=== PATIENT | male | born 1970 | race Caucasian/White ===

== ENCOUNTER 2017-06-28 09:32 | Day surgery (SDC) | payer BC ==
[~2017-06-28 09:32] MED LIST: Lactated Ringers 1,000 ML IV SCH
[2017-06-28] MEDS ORDERED: Lidocaine 2% 5 ML SDV ONE (09:43)
[2017-06-28] MEDS ORDERED: Propofol 200 MG/20 ML SDV ONE ×3 (09:43→11:47)
--- NOTE | 2017-06-28 10:15 | PCM.PREANE ---
Preanesthetic Assessment - Anesthesia/Transfusion/Family Hx Anesthesia History: Prior Anesthesia Without Reaction Family History of Anesthesia Reaction: No Transfusion History: No Prior Transfusion(s) Intubation History: Unknown - Review of Systems General: No Symptoms Pulmonary: No Symptoms Cardiovascular: No Symptoms Gastrointestinal: Constipation, Hematochezia Neurological: No Symptoms Other: Reports: None - Physical Assessment Height: 1.7 m Weight: 104.326 kg ASA Class: 3 Mental Status: Alert & Oriented x3 Airway Class: Mallampati = 2 Dentition: Reports: Normal Dentition Thyro-Mental Finger Breadths: 3 Mouth Opening Finger Breadths: 3 ROM/Head Extension: Full Lungs: Clear to Auscultation, Normal Respiratory Effort Cardiovascular: Regular Rate, Regular Rhythm - Allergies Allergies/Adverse Reactions: Allergies Allergy/AdvReac Type Severity Reaction Status Date / Time No Known Allergies Allergy Verified 06/27/17 08:22 - Blood Blood Available: No - Anesthesia Plan Pre-Op Medication Ordered: None - Acknowledgements Anesthesia Type Planned: MAC Pt an Appropriate Candidate for the Planned Anesthesia: Yes Alternatives and Risks of Anesthesia Discussed w Pt/Guardian: Yes Pt/Guardian Understands and Agrees with Anesthesia Plan: Yes PreAnesthesia Questionnaire HEENT History: Reports: Other (See Below) Other HEENT History: wears glasses Respiratory History: Reports: Asthma Gastrointestinal History: Reports: GERD Musculoskeletal History: Reports: Back Pain, Chronic, Fracture Other Musculoskeletal History: hx fx leg and fx rt foot, 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, tremor in both arms Neurological History: Reports: None Psychiatric History: Reports: None Endocrine/Metabolic History: Reports: Obesity/BMI 30+ (BMI 36) Hematologic History: Reports: None Immunologic History: Reports: None Oncologic (Cancer) History: Reports: None Dermatologic History: Reports: None - Past Surgical History Head Surgeries/Procedures: Reports: None Musculoskeletal Surgical History: Reports: Other (See Below) Other Musculoskeletal Surgeries/Procedures:: multiple surgeries to left foot and ankle - SUBSTANCE USE Smoking Status *Q: Never Smoker Second Hand Smoke Exposure: Yes Recreational Drug Use History: No - HOME MEDS Home Medications: Home Meds Albuterol [Proair HFA] 2 puff INH ASDIRECTED PRN 06/27/17 [History] Omeprazole 20 mg PO DAILY 06/27/17 [History] - CURRENT (IN HOUSE) MEDS Current Meds: Current Medications Lactated Ringer's (Ringers, Lactated) 1,000 mls @ 125 mls/hr IV ASDIRECTED RIVER Discontinued Medications Lidocaine (Xylocaine-Mpf 2%) Confirm Administered Dose 5 ml .ROUTE .STK-MED ONE Stop: 06/28/17 09:44 Propofol (Diprivan 20 Ml) Confirm Administered Dose 400 mg .ROUTE .STK-MED ONE Stop: 06/28/17 09:44
[2017-06-28] MEDS ORDERED: Ondansetron 4 MG Tab.DIS PO PRN (12:05)
--- NOTE | 2017-06-28 12:10 | PCM.OPNOTE ---
- General Post-Op/Procedure Note Date of Surgery/Procedure: 06/28/17 Operative Procedure(s): Esophagogastroduodenoscopy with biopsy. Colonoscopy. Pre Op Diagnosis: Progressive gastroesophageal reflux disease. Change in bowel habits. Intermittent rectal bleeding. Post-Op Diagnosis: Duodenitis, gastritis, hiatal hernia with esophagitis. No evidence of colonic neoplasia. Anesthesia Technique: MAC (ASA III) Primary Surgeon: Fabio Faye Tacking Machine Operator: Kaleb Dowell Condition: Good Free Text/Narrative:: Dictation [id number] CPT CODE [id number]
[2017-06-28 12:19] VITALS: BP 114/70
--- NOTE | 2017-06-28 12:30 | OR ---
SURGEON: Fabio Faye M.D. DATE OF PROCEDURE: 06/28/2017 OPERATION PERFORMED: Esophagogastroduodenoscopy with biopsy. DATAPOWER CONSULTANT: Dr. Dowell, PGY3. ANESTHESIA: MAC. ASA CLASSIFICATION: III. PREOPERATIVE DIAGNOSIS: Progressive gastroesophageal reflux disease with worsening heartburn. POSTOPERATIVE DIAGNOSES: 1. Gastritis. 2. Hiatal hernia. 3. Esophagitis. DESCRIPTION OF PROCEDURE: The patient was taken to the endoscopy room, positioned on the endoscopy table in the left lateral decubitus position. Time-out was called for appropriate identification of the patient and procedure. Monitored anesthesia care was provided. A bite block was placed between the patient's teeth. The gastroscope was inserted through the bite block into the mouth and advanced without difficulty through the oropharynx into the esophagus, and subsequently through the esophagus and stomach into the duodenum where examination was carried out in a retrograde fashion. Duodenum did show some mild inflammatory changes and duodenal biopsies were obtained. No acute ulcerations were noted. The gastroscope was then withdrawn to the stomach, which also shows a mild gastritis. Antral biopsies were obtained. No acute ulcerations or tumors were noted. The gastroscope was retroflexed to visualize the proximal stomach. The patient does have a large hiatal hernia. The scope was then straightened and slowly withdrawn carefully visualizing the greater and lesser curvatures. Stomach was aspirated. The GE junction is well defined and shows mild-to- moderate acute inflammatory changes. Biopsies of the distal esophagus were obtained. The esophagus itself demonstrates good contractility. No mid or proximal lesions were identified. The vocal cords were briefly visualized as the scope was withdrawn and noted to move symmetrically. The gastroscope was then removed with the patient having tolerated this portion of the procedure well. DENNISE / KELVIN /[id number]
--- NOTE | 2017-06-28 12:33 | OR ---
SURGEON: Fabio Faye M.D. DATE OF PROCEDURE: 06/28/2017 OPERATION PERFORMED: Colonoscopy OPTOMETRIC TECHNOLOGIST: Dr. Dowell, PGY3. ANESTHESIA: MAC. ASA CLASSIFICATION: III. PREOPERATIVE DIAGNOSIS: Change in bowel habits with intermittent rectal bleeding. POSTOPERATIVE DIAGNOSIS: No evidence of colonic neoplasia. DESCRIPTION OF PROCEDURE: With the patient in the left lateral decubitus position, the colonoscope was inserted into the rectum and advanced without difficulty through the entire length of the colon to the cecum. Despite multiple maneuvers, we were never able to retroflex the colonoscope in the cecum. The colonoscope was slowly withdrawn. The cecum, ascending colon, hepatic flexure, transverse colon, splenic flexure, descending colon, sigmoid colon, and rectum were very well visualized. No tumors, polyps, diverticula, or angiodysplastic changes were noted anywhere in the lower gastrointestinal tract. Once the colonoscope was withdrawn to the rectum, it was retroflexed to visualize the anal orifice from above. No tumors or polyps were seen, and there were no acute hemorrhoidal changes. The colonoscope was then straightened, the rectum aspirated, and the colonoscope removed. The patient tolerated the procedure well and was taken to recovery room in stable condition. DENNISE / KELVIN /[id number]
--- NOTE | 2017-06-28 13:32 | PCM.POSTAN ---
POST ANESTHESIA ASSESSMENT - MENTAL STATUS Mental Status: Alert, Oriented - RESPIRATORY Respiratory Status: Respiratory Rate WNL, Airway Patent, O2 Saturation Stable - CARDIOVASCULAR CV Status: Pulse Rate WNL, Blood Pressure Stable - GASTROINTESTINAL GI Status: No Symptoms - POST OP HYDRATION Hydration Status: Adequate & Stable
--- NOTE | 2017-06-28 13:33 | PCM48HPAN ---
Post Anesthesia Note - EVALUATION WITHIN 48HRS OF ANESTHETIC Vital Signs in Normal Range: Yes Patient Participated in Evaluation: Yes Respiratory Function Stable: Yes Airway Patent: Yes Cardiovascular Function Stable: Yes Hydration Status Stable: Yes Pain Control Satisfactory: Yes Nausea and Vomiting Control Satisfactory: Yes Mental Status Recovered: Yes Resp Rate: 16
== END 2017-06-28 13:15 | disposition home or self-care (01) ==
LOC: MW.SDS 09:32
PROVIDERS: ATTEND Surgery
DX: K29.50 Unspecified chronic gastritis without bleeding (principal); K29.80 Duodenitis without bleeding; K20.9 Esophagitis, unspecified; K22.70 Barrett's esophagus without dysplasia; K44.9 Diaphragmatic hernia without obstruction or gangrene; J45.909 Unspecified asthma, uncomplicated; E66.9 Obesity, unspecified; Z91.09 Other allergy status, other than to drugs and biological substances; Z79.899 Other long term (current) drug therapy; Z68.36 Body mass index [BMI] 36.0-36.9, adult
CPT/HCPCS: 43239; 45378; J7120; 00813; 88305; 88312; J2704

== ENCOUNTER 2017-10-07 09:18 | Emergency (ER) | payer BC ==
[2017-10-07] MEDS ORDERED: Aspirin 325 MG Tab PO ONE (09:28)
[2017-10-07] MEDS ORDERED: Sodium Chloride 0.9% 10 ML Syringe FLUSH PRN (09:28)
[2017-10-07] MEDS ORDERED: Sodium Chloride 0.9% 2.5 ML Syringe FLUSH PRN (09:28)
[2017-10-07] MEDS ORDERED: Nitroglycerin 0.4 MG Tab.SL SL PRN (09:30)
[2017-10-07] MEDS ORDERED: Albuterol/Ipratropium 3.0-0.5 MG/3 ML Neb Soln NEB ONE (09:35)
--- NOTE | 2017-10-07 09:35 | EDM.PDOC ---
ED HPI GENERAL MEDICAL PROBLEM - General Chief Complaint: Chest Pain Stated Complaint: CHEST PAIN Time Seen by Provider: 10/07/17 09:32 Source of Information: Reports: Patient History Limitations: Reports: No Limitations - History of Present Illness INITIAL COMMENTS - FREE TEXT/NARRATIVE: HISTORY AND PHYSICAL: History of present illness: 47-year-old male presenting emerged chief complaint of chest pain 2 days Patient states that he began having some chest pain after returning from his vacation. States he has been significant for the past 2 days. It is constant and heavy/tight in character. No alleviating factors and has not taken any medication for this. He has no significant cardiac history and denies any LA, hypertension, or other cardiac disease processes. He does have a history of asthma and has felt short of breath with this. He denies any diaphoresis or nausea and vomiting associated with the chest pain. He also denies any radiation of pain. Currently pain is substernal and more tightness worse with deep breaths. Patient states the only reason why he came in secondary to his family requesting. Patient sees a primary care provider, Dr. Garcia, but has never seen a continuous mining operator. Patient currently denies palpitations, syncopal episodes, focal neurologic deficits. Her pain is 6 out of 10. [id number]- Initial EKG normal sinus rhythm with no significant ST changes. Chest pain reproducible on exam. Significant wheezing bilaterally throughout, as well as poor airway movement. Subsequent EKG showed aydee 58 with occasional PAC. Review of systems: As per history of present illness and below otherwise all systems reviewed and negative. Past medical history: As per history of present illness and as reviewed below otherwise noncontributory. Surgical history: As per history of present illness and as reviewed below otherwise noncontributory. Social history: No reported history of drug or alcohol abuse. Family history: As per history of present illness and as reviewed below otherwise noncontributory. Physical exam: HEENT: Atraumatic, normocephalic, pupils reactive, negative for conjunctival pallor or scleral icterus, mucous membranes moist, throat clear, neck supple, nontender, trachea midline. Lungs: Generalized bilateral wheezes, poor air movement, breath sounds equal bilaterally, chest pain reproducible deep palpation. Heart: S1S2, regular, negative for clicks, rubs, or JVD. Abdomen: Soft, nondistended, nontender. Negative for masses or hepatosplenomegaly. Negative for costovertebral tenderness. Pelvis: Stable nontender. Genitourinary: Deferred. Rectal: Deferred. Extremities: Atraumatic, negative for cords or calf pain. Neurovascular unremarkable. Neuro: Awake, alert, oriented. Cranial nerves II through XII unremarkable. Cerebellum unremarkable. Motor and sensory unremarkable throughout. Exam nonfocal. Diagnostics: CBC, CMP, troponin, INR, EKG, chest x-ray Therapeutics: DuoNeb 1, ASA 324 mg 1, 125 mg Solu-Medrol 1 Impression: Atypical chest pain Asthma exacerbation Plan: CBC, CMP, troponin, EKG, and chest x-ray were unremarkable. Patient had significant relief with one treatment of DuoNeb from his chest pain/tightness. Patient had recently returned from a vacation when his symptoms started. Think this is more likely an acute asthma exacerbation. We did give him a shot of 125 mg Solu-Medrol as well as gave him a prescription for albuterol. He is to follow with his primary care provider Dr. Garcia. Return to emergency department if he has any new or worsening symptoms. Also may need further investigation of PAC's by primary care and possible cardiology consult. They are asymptomatic. Definitive disposition and diagnosis as appropriate pending reevaluation and review of above. 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, tremor in both arms Neurological History: Reports: None Psychiatric History: Reports: None Endocrine/Metabolic History: Reports: Obesity/BMI 30+ (BMI 36) Hematologic History: Reports: None Immunologic History: Reports: None Oncologic (Cancer) History: Reports: None Dermatologic History: Reports: None - Past Surgical History Head Surgeries/Procedures: Reports: None Musculoskeletal Surgical History: Reports: Other (See Below) Other Musculoskeletal Surgeries/Procedures:: multiple surgeries to left foot and ankle ED ROS GENERAL - Review of Systems Review Of Systems: ROS reveals no pertinent complaints other than HPI. ED EXAM, GENERAL - Physical Exam Exam: See Below Course - Vital Signs Last Recorded V/S: Last Vital Signs Temp 97.1 F 10/07/17 09:24 Pulse 66 10/07/17 11:29 Resp 14 10/07/17 11:29 BP 146/93 H 10/07/17 11:29 Pulse Ox 99 10/07/17 11:29 - Orders/Labs/Meds Orders: Active Orders 24 hr Category Date Time Status Cardiac Monitoring [RC] . DIRECTED Care 10/07/17 09:28 Active EKG Documentation Completion [RC] STAT Care 10/07/17 09:28 Active RT Aerosol Therapy [RC] ASDIRECTED Care 10/07/17 09:35 Active CULTURE URINE [RM] Stat Lab 10/07/17 Ordered UA W/MICROSCOPIC [URIN] Stat Lab 10/07/17 09:20 Ordered Sodium Chloride 0.9% [Saline Flush] Med 10/07/17 09:28 Active 10 ml FLUSH ASDIRECTED PRN Sodium Chloride 0.9% [Saline Flush] Med 10/07/17 09:28 Active 2.5 ml FLUSH ASDIRECTED PRN Saline Lock Insert [OM.PC] Stat Oth 10/07/17 09:28 Ordered Medication Orders Sodium Chloride (Saline Flush) 10 ml FLUSH ASDIRECTED PRN PRN Reason: Keep Vein Open Last Admin: 10/07/17 09:38 Dose: 10 ml Sodium Chloride (Saline Flush) 2.5 ml FLUSH ASDIRECTED PRN PRN Reason: Keep Vein Open Last Admin: 10/07/17 09:38 Dose: 2.5 ml Labs: Laboratory Tests 10/07/17 10/07/17 10/07/17 Range/Units 09:20 09:20 10:00 WBC 4.80 (4.0-11.0) K/uL RBC 5.16 (4.50-5.90) M/uL Hgb 15.4 (13.0-17.0) g/dL Hct 45.5 (38.0-50.0) % MCV 88.2 (80.0-98.0) fL MCH 29.8 (27.0-32.0) pg MCHC 33.8 (31.0-37.0) g/dL RDW Std Deviation 43.6 (28.0-62.0) fl RDW Coeff of Nelda 14 (11.0-15.0) % Plt Count 232 (150-400) K/uL MPV 11.60 (7.40-12.00) fL Neut % (Auto) 51.8 (48.0-80.0) % Lymph % (Auto) 25.6 (16.0-40.0) % Brown % (Auto) 8.8 (0.0-15.0) % Eos % (Auto) 11.3 H (0.0-7.0) % Baso % (Auto) 2.5 H (0.0-1.5) % Neut # (Auto) 2.5 (1.4-5.7) K/uL Lymph # (Auto) 1.2 (0.6-2.4) K/uL Brown # (Auto) 0.4 (0.0-0.8) K/uL Eos # (Auto) 0.5 (0.0-0.7) K/uL Baso # (Auto) 0.1 (0.0-0.1) K/uL Nucleated RBC % 0.0 /100WBC Nucleated RBCs # 0 K/uL Sodium 141 (136-148) mmol/L Potassium 5.0 (3.5-5.1) mmol/L Chloride 106 (98-107) mmol/L Carbon Dioxide 28.1 (21.0-32.0) mmol/L BUN 15 (7.0-18.0) mg/dL Creatinine 0.9 (0.8-1.3) mg/dL Est Cr Clr Drug Dosing 96.06 mL/min Estimated GFR (MDRD) > 60.0 ml/min Glucose 107 H (74-106) mg/dL Calcium 8.6 (8.5-10.1) mg/dL Total Bilirubin 0.3 (0.2-1.0) mg/dL AST 19 (15-37) IU/L ALT 19 (14-63) IU/L Alkaline Phosphatase 73 (46-116) U/L Creatine Kinase 150 (26-308) U/L Troponin I < 0.050 (0.000-0.056) ng/mL Total Protein 6.5 (6.4-8.2) g/dL Albumin 3.4 (3.4-5.0) g/dL Globulin 3.1 (2.0-3.5) g/dL Albumin/Globulin Ratio 1.1 L (1.3-2.8) Urine Color YELLOW Urine Appearance SLT CLOUDY Urine pH 6.0 (5.0-8.0) Ur Specific Patton >= 1.030 (1.001-1.035) Urine Protein 30 (NEGATIVE) mg/dL Urine Glucose (UA) NEGATIVE (NEGATIVE) mg/dL Urine Ketones NEGATIVE (NEGATIVE) mg/dL Urine Occult Blood TRACE-INTACT (NEGATIVE) Urine Nitrite NEGATIVE (NEGATIVE) Urine Bilirubin NEGATIVE (NEGATIVE) Urine Urobilinogen 0.2 (<2.0) EU/dL Ur Leukocyte Esterase NEGATIVE (NEGATIVE) Urine RBC 2-4 (0-2/HPF) Urine WBC 4-8 (0-5/HPF) Ur Epithelial Cells MODERATE (NONE-FEW) Urine Bacteria 2+ H (NEGATIVE) Meds: Medications Generic Name Dose Route Start Last Admin Trade Name Frejuan jose PRN Reason Stop Dose Admin Sodium Chloride 10 ml 10/07/17 09:28 10/07/17 09:38 Saline Flush FLUSH 10 ml ASDIRECTED PRN Administration Keep Vein Open Sodium Chloride 2.5 ml 10/07/17 09:28 10/07/17 09:38 Saline Flush FLUSH 2.5 ml ASDIRECTED PRN Administration Keep Vein Open Discontinued Medications Generic Name Dose Route Start Last Admin Trade Name Freq PRN Reason Stop Dose Admin Albuterol/Ipratropium 3 ml 10/07/17 09:35 10/07/17 09:38 Duoneb 3.0-0.5 Mg/3 Ml NEB 10/07/17 09:36 3 ml ONETIME ONE Administration Aspirin 325 mg 10/07/17 09:28 10/07/17 09:38 Aspirin PO 10/07/17 09:29 325 mg ONETIME ONE Administration Methylprednisolone Sodium Succinate 125 mg 10/07/17 11:18 10/07/17 11:29 Solu-Medrol IVPUSH 10/07/17 11:19 125 mg ONETIME ONE Administration Nitroglycerin 0.4 mg 10/07/17 09:30 Nitrostat SL Q5M PRN Chest Pain Departure - Departure Time of Disposition: 11:15 Disposition: Home, Self-Care 01 Condition: Good Clinical Impression: Atypical chest pain Acute asthma exacerbation Qualifiers: Asthma severity: mild Asthma persistence: persistent Qualified Code(s): J45.31 - Mild persistent asthma with (acute) exacerbation - Discharge Information Forms: ED Department Discharge Additional Instructions: My general discharge The following information is given to patients seen in the emergency department who are being discharged to home. This information is to outline your options for follow-up care. We provide all patients seen in our emergency department with a follow-up referral. The need for follow-up, as well as the timing and circumstances, are variable depending upon the specifics of your emergency department visit. If you don't have a primary care physician on staff, we will provide you with a referral. We always advise you to contact your personal physician following an emergency department visit to inform them of the circumstance of the visit and for follow-up with them and/or the need for any referrals to a consulting specialist. The emergency department will also refer you to a specialist when appropriate. This referral assures that you have the opportunity for follow-up care with a specialist. All of these measure are taken in an effort to provide you with optimal care, which includes your follow-up. Under all circumstances we always encourage you to contact your private physician who remains a resource for coordinating your care. When calling for follow-up care, please make the office aware that this follow-up is from your recent emergency room visit. If for any reason you are refused follow-up, please contact the [facility] Emergency Department at and asked to speak to the emergency department charge nurse. [facility] [address] [place] [id number] Follow-up with Dr. Garcia for your acute asthma exacerbation as well as findings of premature atrial complexes on EKG with some associated bradycardia. Take medications as prescribed. Return to emergency department if any new or worsening symptoms. - My Orders Last 24 Hours: My Active Orders 10/07/17 09:20 UA W/MICROSCOPIC [URIN] Stat 10/07/17 09:28 Cardiac Monitoring [RC] . DIRECTED EKG Documentation Completion [RC] STAT Sodium Chloride 0.9% [Saline Flush] 10 ml FLUSH ASDIRECTED PRN Sodium Chloride 0.9% [Saline Flush] 2.5 ml FLUSH ASDIRECTED PRN Saline Lock Insert [OM.PC] Stat 10/07/17 09:35 RT Aerosol Therapy [RC] ASDIRECTED - Assessment/Plan Last 24 Hours: My Active Orders 10/07/17 09:20 UA W/MICROSCOPIC [URIN] Stat 10/07/17 09:28 Cardiac Monitoring [RC] . DIRECTED EKG Documentation Completion [RC] STAT Sodium Chloride 0.9% [Saline Flush] 10 ml FLUSH ASDIRECTED PRN Sodium Chloride 0.9% [Saline Flush] 2.5 ml FLUSH ASDIRECTED PRN Saline Lock Insert [OM.PC] Stat 10/07/17 09:35 RT Aerosol Therapy [RC] ASDIRECTED
--- NOTE | 2017-10-07 10:02 | CR ---
EXAMINATION: Portable chest radiograph. HISTORY: Chest pain. FINDINGS: The trachea is midline. The cardiomediastinal silhouette is within normal limits. No pulmonary infilt rates, effusions or pneumothorax. Osseous structures appear unremarkable. IMPRESSION: No acute cardiopulmonary process.
[2017-10-07 10:54] LABS: CHLORIDE,CL 106 mmol/L (98-107); SODIUM,NA 141 mmol/L (136-148)
[2017-10-07] MEDS ORDERED: methylPREDNISolone Sodium Succinate 125 MG/2 ML SDV IM ONE (11:11)
[2017-10-07] MEDS ORDERED: methylPREDNISolone Sodium Succinate 125 MG/2 ML SDV IVPUSH ONE (11:18)
[2017-10-07 11:58] VITALS: BP 162/99
== END 2017-10-07 11:58 | disposition home or self-care (01) ==
LOC: MW.ED 09:18
DX: J45.31 Mild persistent asthma with (acute) exacerbation (principal); E66.9 Obesity, unspecified
CPT/HCPCS: 36415; 71045; 80053; 82550; 84484; 85025; 93005; 94640; 96374; 99285; A9270; J2930; 99284

== ENCOUNTER 2020-04-12 06:31 | Day surgery (SDC) | payer BC ==
[~2020-04-12 06:31] MED LIST changes: +Sodium Chloride 0.9% 10 ML SDV IV PRN; +Sodium Chloride 0.9% 10 ML Syringe FLUSH PRN; +Sodium Chloride 0.9% 2.5 ML Syringe FLUSH PRN; +ceFAZolin 2 GM in Premix Bag 1 BAG IV ONE
[2020-04-12] MEDS ORDERED: Glycopyrrolate 0.2 MG/ML SDV ONE ×2 (06:53→08:30)
[2020-04-12] MEDS ORDERED: Lidocaine 2% 5 ML SDV ONE (06:53)
[2020-04-12] MEDS ORDERED: Ondansetron 4 MG/2 ML SDV ONE (06:53)
[2020-04-12] MEDS ORDERED: Rocuronium Bromide 50 MG/5 ML Syringe ONE (06:53)
[2020-04-12] MEDS ORDERED: fentaNYL 250 MCG/5 ML SDV ONE (06:54)
[2020-04-12] MEDS ORDERED: Midazolam 1 MG/ML 2 ML SDV ONE (06:54)
[2020-04-12] MEDS ORDERED: Propofol 200 MG/20 ML SDV ONE (06:54)
[2020-04-12] MEDS ORDERED: Albuterol/Ipratropium 3.0-0.5 MG/3 ML Neb Soln NEB ONE (07:11)
[2020-04-12] MEDS ORDERED: Scopolamine 1.5 MG Transdermal Patch TRDERM PRN (07:13)
[2020-04-12] MEDS ORDERED: Albuterol/Ipratropium 3.0-0.5 MG/3 ML Neb Soln ONE (07:17)
--- NOTE | 2020-04-12 07:17 | PCM.PREANE ---
Preanesthetic Assessment - Anesthesia/Transfusion/Family Hx Anesthesia History: Prior Anesthesia Without Reaction Family History of Anesthesia Reaction: No Transfusion History: No Prior Transfusion(s) Intubation History: Unknown - Review of Systems General: No Symptoms Pulmonary: No Symptoms Cardiovascular: No Symptoms Gastrointestinal: Abdominal Pain Neurological: No Symptoms Other: Reports: None - Physical Assessment Vital Signs: Last Vital Signs Temp 36.2 C 04/12/20 06:36 Pulse 82 04/12/20 06:36 Resp 15 04/12/20 06:36 BP 127/87 04/12/20 06:36 Pulse Ox 92 L 04/12/20 06:36 Height: 5 ft 7 in Weight: 105.687 kg ASA Class: 2 Mental Status: Alert & Oriented x3 Airway Class: Mallampati = 2 Dentition: Reports: Normal Dentition Thyro-Mental Finger Breadths: 3 Mouth Opening Finger Breadths: 3 ROM/Head Extension: Full Lungs: Clear to Auscultation, Normal Respiratory Effort Cardiovascular: Regular Rate, Regular Rhythm - Allergies Allergies/Adverse Reactions: Allergies Allergy/AdvReac Type Severity Reaction Status Date / Time animal dander Allergy affects Verified 04/05/20 13:16 asthma pollen extracts Allergy affects Verified 04/05/20 13:16 asthma dust Allergy affects Uncoded 04/05/20 13:17 asthma - Blood Blood Available: No - Anesthesia Plan Pre-Op Medication Ordered: None - Acknowledgements Anesthesia Type Planned: General Anesthesia Pt an Appropriate Candidate for the Planned Anesthesia: Yes Alternatives and Risks of Anesthesia Discussed w Pt/Guardian: Yes Pt/Guardian Understands and Agrees with Anesthesia Plan: Yes PreAnesthesia Questionnaire HEENT History: Reports: Other (See Below) Other HEENT History: wears glasses Cardiovascular History: Reports: None Respiratory History: Reports: Asthma (mild at present time) Gastrointestinal History: Reports: Chronic Constipation, GERD, Hiatal Hernia Other Gastrointestinal History: upper abd pain, h/o esophagitis,gastritis and duodenitis Genitourinary History: Reports: Other (See Below) Other Genitourinary History: urinary frequency Musculoskeletal History: Reports: Back Pain, Chronic, Fracture Other Musculoskeletal History: hx fx leg and fx rt foot, 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, Neurological History: Reports: None Psychiatric History: Reports: None Endocrine/Metabolic History: Reports: Obesity/BMI 30+ (BMI 36.5) Hematologic History: Reports: None Immunologic History: Reports: None Oncologic (Cancer) History: Reports: None Dermatologic History: Reports: None - Infectious Disease History Infectious Disease History: Reports: Chicken Pox - Past Surgical History Head Surgeries/Procedures: Reports: None HEENT Surgical History: Reports: None Cardiovascular Surgical History: Reports: None Respiratory Surgical History: Reports: None GI Surgical History: Reports: Colonoscopy, EGD Male Surgical History: Reports: None Endocrine Surgical History: Reports: None Neurological Surgical History: Reports: None Musculoskeletal Surgical History: Reports: Other (See Below) Other Musculoskeletal Surgeries/Procedures:: multiple surgeries to left foot and ankle Oncologic Surgical History: Reports: None Dermatological Surgical History: Reports: None - SUBSTANCE USE Tobacco Use Status *Q: Never Tobacco User - HOME MEDS Home Medications: Home Meds Albuterol [Proair HFA] 2 puff INH ASDIRECTED PRN 06/27/17 [History] Albuterol Sulfate 1 inhalation NEB ASDIRECTED PRN 04/05/20 [History] Ascorbic Acid [Vitamin C] 500 mg PO BID 04/05/20 [History] Cholecalciferol (Vitamin D3) [Vitamin D3] 2,000 units PO DAILY 04/05/20 [History] Fluticasone Propionate [Flovent HFA 110 MCG] 1 puff INH BID PRN 04/05/20 [History] Omeprazole 20 mg PO BID 04/05/20 [History] Psyllium Husk [Metamucil] 1 tab PO DAILY 04/05/20 [History] - CURRENT (IN HOUSE) MEDS Current Meds: Current Medications Albuterol/Ipratropium (Duoneb 3.0-0.5 Mg/3 Ml) 3 ml NEB ONETIME ONE Stop: 04/12/20 07:12 Lactated Ringer's (Ringers, Lactated) 1,000 mls @ 125 mls/hr IV ASDIRECTED RIVER Last Admin: 04/12/20 06:50 Dose: 125 mls/hr Documented by: Scopolamine (Transderm-Scop) 1.5 mg TRDERM Q72H PRN PRN Reason: Nausea Sodium Chloride (Saline Flush) 2.5 ml FLUSH ASDIRECTED PRN PRN Reason: Keep Vein Open Sodium Chloride (Normal Saline) 10 ml IV ASDIRECTED PRN PRN Reason: IV Use Sodium Chloride (Saline Flush) 10 ml FLUSH ASDIRECTED PRN PRN Reason: Keep Vein Open Discontinued Medications Fentanyl (Sublimaze) Confirm Administered Dose 250 mcg .ROUTE .STK-MED ONE Stop: 04/12/20 06:55 Glycopyrrolate (Robinul) Confirm Administered Dose 0.4 mg .ROUTE .STK-MED ONE Stop: 04/12/20 06:54 Cefazolin Sodium/Dextrose 2 gm (/ Premix) 50 mls @ 100 mls/hr IV ONETIME ONE Stop: 04/08/20 10:46 Lidocaine (Xylocaine-Mpf 2%) Confirm Administered Dose 5 ml .ROUTE .STK-MED ONE Stop: 04/12/20 06:54 Midazolam HCl (Versed 1 Mg/Ml) Confirm Administered Dose 2 mg .ROUTE .STK-MED ONE Stop: 04/12/20 06:55 Ondansetron HCl (Zofran) Confirm Administered Dose 4 mg .ROUTE .STK-MED ONE Stop: 04/12/20 06:54 Propofol (Diprivan 20 Ml) Confirm Administered Dose 200 mg .ROUTE .STK-MED ONE Stop: 04/12/20 06:55 Rocuronium [place] (Rocuronium [place]) Confirm Administered Dose 50 mg .ROUTE .STK-MED ONE Stop: 04/12/20 06:54
[2020-04-12] MEDS ORDERED: Bupivacaine 0.5% 30 ML SDV ONE (07:34)
[2020-04-12] MEDS ORDERED: ceFAZolin 1 GM Vial ONE (08:17)
[2020-04-12] MEDS ORDERED: Sodium Chloride 0.9% 20 ML ONE (08:17)
[2020-04-12] MEDS ORDERED: ePHEDrine 50 MG/ML SDV ONE (08:41)
[2020-04-12] MEDS ORDERED: Naloxone 0.4 MG/ML Syringe IVPUSH PRN (09:24)
[2020-04-12] MEDS ORDERED: EPINEPHrine 1:10,000 1 MG/10 ML Syringe IVPUSH PRN (09:24)
[2020-04-12] MEDS ORDERED: Albuterol 0.083% 2.5 MG/3 ML Neb Soln NEB PRN (09:24)
[2020-04-12] MEDS ORDERED: Atropine 0.1 MG/ML 10 ML Syringe IVPUSH PRN ×2 (09:24)
[2020-04-12] MEDS ORDERED: 50% Dextrose in Water 50 ML Syringe IVPUSH PRN (09:24)
[2020-04-12] MEDS ORDERED: fentaNYL 100 MCG/2 ML SDV IVPUSH PRN ×2 (09:24→11:50)
[2020-04-12] MEDS ORDERED: Octyl 2-Cyanoacrylate 1 Tube ONE (09:34)
[2020-04-12] MEDS ORDERED: fentaNYL 100 MCG/2 ML SDV ONE (09:42)
[2020-04-12] MEDS ORDERED: Acetaminophen 1,000 MG in Premix Bag 1 BAG IV ONE (09:51)
--- NOTE | 2020-04-12 09:54 | PCM.OPNOTE ---
- General Post-Op/Procedure Note Date of Surgery/Procedure: 04/12/20 Operative Procedure(s): Laparoscopic cholecystectomy Findings: Adhesions of the omentum to the gallbladder. Signs of chronic cholecystitis Pre Op Diagnosis: Biliary dyskinesia Post-Op Diagnosis: same Anesthesia Technique: General ET Tube Primary Surgeon: Jewell Schmidt Fluid Replacement, Intraop: 1,500 Output, Urine Amount: 175 EBL in mLs: 10 Condition: Good
--- NOTE | 2020-04-12 10:48 | OR ---
SURGEON: JEWELL TREVIZO MD DATE OF PROCEDURE: 04/12/2020 PREOPERATIVE DIAGNOSIS: Biliary dyskinesia. POSTOPERATIVE DIAGNOSES: Biliary dyskinesia, adhesions to the gallbladder. PROCEDURE PERFORMED: Laparoscopic cholecystectomy and lysis of adhesions. PRIMARY SURGEON: Jewell Trevizo MD ANESTHESIA: General endotracheal anesthesia. FLUIDS: 1500 mL of crystalloid. ESTIMATED BLOOD LOSS: 10 mL. URINE OUTPUT: 175 mL. FINDINGS: Gallbladder with adhesions from the omentum to the gallbladder wall up to the liver capsule. Signs of chronic cholecystitis. COMPLICATIONS: None. INDICATIONS: The patient is a 49-year-old male who presents with chronic upper abdominal pain. Workup revealed a decreased ejection fraction consistent with biliary dyskinesia. The patient and I discussed the need for laparoscopic, possible open cholecystectomy. I explained the procedures, expected perioperative course, and the risks including bleeding, infection, or damage to surrounding structures. The patient verbalized understanding and wishes to proceed. PROCEDURE IN DETAIL: The patient was brought into the OR and placed on the OR table in supine position. A time-out was completed verifying the patient's name, age, date of , allergies, and procedure to be performed. General endotracheal anesthesia was induced. The left arm was tucked to the patient's side and a Rebolledo catheter placed. The abdomen was prepped and draped in usual standard fashion. I anesthetized the infraumbilical fold with 0.5% Marcaine plain. An 11 blade was used to make an incision along the infraumbilical fold. Cautery was used to dissect down the level of subcutaneous fat. I then bluntly dissected down to the level of the fascia. The fascia was elevated with Tere's and incised with a curved Regan scissors. The peritoneum was elevated with hemostats and incised sharply as well. Entry into the abdomen was palpated digitally. A 12 mm Kee trocar was placed in the abdomen and it was insufflated. A 5 mm, 30-degree scope was inserted. I inspected the area underneath my initial trocar placement. No damage to surrounding structures was noted. The patient was placed in reverse Trendelenburg position and airplaned slightly to the left. 5 mm trocars were placed under direct visualization in the following locations; 1 in the epigastric area, 1 in the right flank, and one 2 fingerbreadths below the right subcostal margin in the midclavicular line. The dome of the gallbladder was unable to be visualized. The patient had omental adhesions along the liver capsule up to the dome of the gallbladder. Using hook cautery, I took down these adhesions and made a window to where I could grab the top of the gallbladder. It was then elevated. I continued to take down the omental adhesions along the gallbladder wall using hook cautery and blunt dissection. Eventually, I was able to clear enough of the adhesions away that I could lift the gallbladder up cranially. I then took down the remainder of the adhesions to the infundibulum. The patient had been given indocyanine green in the preoperative area. Using imaging, I then turned this on and was able to identify my cystic duct as it came up to the infundibulum. I began my dissection along this area. Using blunt dissection, I was able to take down the adhesions around this area and dissect out my cystic duct. I then carried my dissection along the proximal cystic plate. The patient had a small- appearing artery. More dye was injected, but I was unable to see this go through the vessel. It was felt that the vessel was too small to appreciate this. I continued to clear away the attachments of the gallbladder to the proximal cystic plate. I dissected longterm up to ensure that there were no other vessels that may be the cystic artery. Once my critical view was achieved, I doubly clipped and ligated my cystic duct and artery. I then carried my dissection up the cystic plate using hook cautery. A small rent was made in the gallbladder and bile was spilled into the abdomen. The gallbladder was removed from its attachments to the liver bed and placed in an EndoCatch bag. This was removed through the infraumbilical port site. I reinspected my operative field. I irrigated the area with 1.5 L of normal saline until it ran clear and suctioned this out. The area appeared hemostatic with no evidence of bile drainage. My 5 mm trocars were then removed under direct visualization and the abdomen allowed to desufflate. The 12 mm trocar was removed as well. The fascia at my infraumbilical port site was closed with interrupted 0 Vicryl sutures. The subcutaneous fat layer was closed with layers of interrupted 3-0 Vicryl suture. The skin was closed with running 4-0 Monocryl stitch. My 5 mm trocar sites were closed with interrupted 4-0 Monocryl sutures. Dermabond and sterile dressings were applied. All counts were complete and correct at the end of the case. The patient was extubated and taken to PACU in stable condition. JOSH WARREN /[id number]
--- NOTE | 2020-04-12 10:50 | PCM.POSTAN ---
POST ANESTHESIA ASSESSMENT - MENTAL STATUS Mental Status: Alert, Oriented - VITAL SIGNS Vital Signs: Last Vital Signs Temp 36.4 C 04/12/20 09:56 Pulse 67 04/12/20 10:31 Resp 16 04/12/20 10:31 BP 136/79 04/12/20 10:31 Pulse Ox 95 04/12/20 10:31 - RESPIRATORY Respiratory Status: Respiratory Rate WNL, Airway Patent, O2 Saturation Stable - CARDIOVASCULAR CV Status: Pulse Rate WNL, Blood Pressure Stable - GASTROINTESTINAL GI Status: No Symptoms - PAIN Pain Score: 4 - POST OP HYDRATION Hydration Status: Adequate & Stable - OBSERVATIONS Free Text/Narrative:: No anesthesia problems
[2020-04-12] MEDS ORDERED: Acetaminophen/oxyCODONE 325-5 MG Tab PO ONE (12:03)
[2020-04-12] MEDS ORDERED: Omeprazole 20 MG Cap.CR PO ONE (12:24)
[2020-04-12 12:46] VITALS: BP 125/83; PULSE 81
--- NOTE | 2020-04-12 13:07 | PCM48HPAN ---
Post Anesthesia Note - EVALUATION WITHIN 48HRS OF ANESTHETIC Vital Signs in Normal Range: Yes Patient Participated in Evaluation: Yes Respiratory Function Stable: Yes Airway Patent: Yes Cardiovascular Function Stable: Yes Hydration Status Stable: Yes Pain Control Satisfactory: Yes Nausea and Vomiting Control Satisfactory: Yes Mental Status Recovered: Yes Vital Signs: Last Vital Signs Temp 36.0 C L 04/12/20 10:36 Pulse 81 04/12/20 12:36 Resp 16 04/12/20 12:36 BP 125/83 04/12/20 12:36 Pulse Ox 91 L 04/12/20 12:36 - COMMENTS/OBSERVATIONS Free Text/Narrative:: No anesthesia problems
== END 2020-04-12 13:30 | disposition home or self-care (01) ==
LOC: MW.SDS 06:31
PROVIDERS: ATTEND Surgery
DX: K81.1 Chronic cholecystitis (principal); K82.8 Other specified diseases of gallbladder; K66.0 Peritoneal adhesions (postprocedural) (postinfection); J45.909 Unspecified asthma, uncomplicated; E66.9 Obesity, unspecified; K44.9 Diaphragmatic hernia without obstruction or gangrene; Z91.048 Other nonmedicinal substance allergy status; Z79.899 Other long term (current) drug therapy; Z98.890 Other specified postprocedural states; Z68.36 Body mass index [BMI] 36.0-36.9, adult
CPT/HCPCS: 47562; 88304; A9270; J0131; J0690; J2001; J2250; J2405; J2704; J3010; J3490; J7120; J7620-GY

== ENCOUNTER 2023-02-04 15:55 | Emergency (ER) | payer BC ==
[2023-02-04] MEDS ORDERED: Ibuprofen 600 MG Tab PO ONE (16:37)
[2023-02-04] MEDS ORDERED: Acetaminophen/oxyCODONE 325-5 MG Tab PO ONE (16:37)
[2023-02-04 18:11] VITALS: BP 148/85; PULSE 86
== END 2023-02-04 18:08 | disposition home or self-care (01) ==
LOC: MW.ED 15:55
DX: S22.32XA Fracture of one rib, left side, initial encounter for closed fracture (principal); E66.9 Obesity, unspecified; J45.909 Unspecified asthma, uncomplicated; Z79.899 Other long term (current) drug therapy; Z91.048 Other nonmedicinal substance allergy status; W10.9XXA Fall (on) (from) unspecified stairs and steps, initial encounter
CPT/HCPCS: 71250; 99283; A9270